=== PATIENT | male | born 1930 | race Caucasian/White ===

== ENCOUNTER 2016-03-25 14:29 | Observation (INO) | payer OTHER ==
[~2016-03-25] VITALS: Ht 172.7 cm; Wt 93.1 kg
[~2016-03-25 14:29] MED LIST: ALLOPURINOL300 MG PO; ASPIR-LOW81 MG PO; COUMADIN5 MG PO; ECOTRIN325 MG PO; Ecotrin PO; LOPRESSOR25 MG PO; LOSARTAN POTASS50 MG PO; LOVENOX80 MG/0.8 SC; NITROSTAT0.4 MG SL; PLAVIX75 MG PO; PRAVASTATIN SOD40 MG PO; PRILOSEC20 MG PO; TOPROL XL50 MG PO; Toprol XL PO; Zantac PO
[2016-03-25 15:35] LABS: ADD MIUA? YES; BILIRUBIN NEGATIVE; BLOOD SMALL; COLOR YELLOW ((YELLOW)); GLUCOSE (STRIP) NEGATIVE; KETONES NEGATIVE; LEUKOCYTES LARGE; NITRITE POSITIVE; PROTEIN (STRIP) 30; SPECIFIC GRAVITY 1.013 (1.000-1.030); UROBILINOGEN 0.2 MG/DL (0.2-1.0)
[2016-03-25 16:04] LABS: EPITHELIAL CELLS NONE SEEN; MUCUS NONE SEEN; RED BLOOD CELLS RARE /HPF (0-5); WHITE BLOOD CELLS 20-30 /HPF (0-5)
[2016-03-25 16:05] LABS: BACTERIA 1+; CASTS NONE SEEN /LPF; CRYSTALS NONE SEEN; UCUL ADDED? NO
[2016-03-25 16:25] LABS: HEMATOCRIT 37.9 % (38.0-50.0); MCH 30.2 PG (29.0-34.0); MCHC 34.3 G/DL (30.0-36.0); MCV 87.9 FL (86-99); MEAN PLAT.VOLUME 10.6 uM^3 (9.0-12.4); PLATELET COUNT 248 K/uL (156-360); RBC DIS.WIDTH-CV 13.7 % (11.8-14.6); RED BLOOD COUNT 4.31 M/uL (4.00-5.50); WHITE BLOOD COUNT 18.2 K/uL (4.1-10.2)
[2016-03-25 16:35] LABS: CHLORIDE 95 mEq/L (99-109); POTASSIUM 4.5 mEq/L (3.7-5.4); SODIUM 124 mEq/L (136-147)
[2016-03-25 16:37] LABS: GLUCOSE 148 mg/dL (70-99)
[2016-03-25 16:38] LABS: ANION GAP 10 MEQ/L (2-14)
[2016-03-25 16:41] LABS: GFR ESTIMATE (CALCULATED) 32 mL/min/
[2016-03-25 16:42] LABS: UREA NITROGEN (BUN) 26 mg/dL (9-23)
[2016-03-25] MEDS ORDERED: WARFARIN SODIUM3 MG PO (18:06)
[2016-03-25] MEDS ORDERED: PROTONIX40 MG PO (18:07)
[2016-03-25] MEDS ORDERED: ALLOPURINOL300 MG PO (18:07)
[2016-03-25 18:19] LABS: PTT 75.8 (25-32)
[2016-03-25 18:25] LABS: INTER. NORMALIZED RATIO 4.2; PROTHROMBIN TIME 44.6 (9.2-11.2)
[2016-03-25 19:04] VITALS: BP 193/100
[2016-03-25 19:40] VITALS: BP 133/80
[2016-03-25 23:45] VITALS: BP 153/82
[2016-03-26 03:24] VITALS: BP 158/80
[2016-03-26 07:31] LABS: EOSINOPHIL (%) 0.7 % (0-5); EOSINOPHIL COUNT 0.1 K/uL (0-0.3); HEMATOCRIT 37.1 % (38.0-50.0); IMMATURE GRANULOCYTE (%) 0.4 % (0.0-0.7); IMMATURE GRANULOCYTE COUNT 0.1 K/uL; INTER. NORMALIZED RATIO 3.9; LYMPHOCYTE COUNT 1.1 K/uL (1.0-2.8); MCH 30.5 PG (29.0-34.0); MCHC 34.2 G/DL (30.0-36.0); MCV 89.2 FL (86-99); MEAN PLAT.VOLUME 11.2 uM^3 (9.0-12.4); MONOCYTE COUNT 1.1 K/uL (0-0.8); NEUTROPHIL (%) 80.8 % (45-76); PLATELET COUNT 265 K/uL (156-360); PROTHROMBIN TIME 41.9 (9.2-11.2); RBC DIS.WIDTH-SD 45.8 % (39-53); RED BLOOD COUNT 4.16 M/uL (4.00-5.50)
[2016-03-26 07:32] LABS: WHITE BLOOD COUNT 12.4 K/uL (4.1-10.2)
[2016-03-26 08:03] LABS: ANION GAP 9 MEQ/L (2-14); CHLORIDE 100 MEQ/L (99-109); GFR ESTIMATE (CALCULATED) 34 mL/min/; POTASSIUM 5.1 MEQ/L (3.7-5.4); SAMPLE HEMOLYSIS CHECK 0; SAMPLE ICTERIC CHECK 0; SAMPLE LIPEMIA CHECK 0; UREA NITROGEN (BUN) 23 mg/dL (9-23)
[2016-03-26 08:04] VITALS: BP 179/91
[2016-03-26 08:04] LABS: GLUCOSE 88 mg/dL (70-99); SODIUM 133 MEQ/L (136-147)
[2016-03-26] MEDS ORDERED: TAMSULOSIN HCL0.4 MG PO (11:38)
[2016-03-26] MEDS ORDERED: CIPRO500 MG PO (11:42)
[2016-03-26 11:59] VITALS: BP 161/88
== END 2016-03-26 13:50 | disposition home or self-care (01) ==
LOC: EME 14:29 → EDOF 17:21 → 5WEST 17:21 → EDOF 17:21 → 5WEST 18:13
PROVIDERS: Emergency Medicine; Internal Medicine
DX: N39.0 Urinary tract infection, site not specified (principal); B96.20 Unspecified Escherichia coli [E. coli] as the cause of diseases classified elsewhere; E87.1 Hypo-osmolality and hyponatremia; R79.1 Abnormal coagulation profile; I12.9 Hypertensive chronic kidney disease with stage 1 through stage 4 chronic kidney disease, or unspecified chronic kidney disease; N18.3 Chronic kidney disease, stage 3 (moderate); I25.10 Atherosclerotic heart disease of native coronary artery without angina pectoris; I25.2 Old myocardial infarction; Z98.61 Coronary angioplasty status; R73.09 Other abnormal glucose; E78.5 Hyperlipidemia, unspecified; R97.20 Elevated prostate specific antigen [PSA]; K59.00 Constipation, unspecified; Z86.718 Personal history of other venous thrombosis and embolism; Z79.01 Long term (current) use of anticoagulants; Z79.02 Long term (current) use of antithrombotics/antiplatelets; Z86.19 Personal history of other infectious and parasitic diseases
CPT/HCPCS: 74176; 80048; 81003; 83930; 83935; 84300; 85025; 85027; 85610; 85730; 87077; 87086; 87186; 99281; 99285; G0103; G0378; G8987 GO CH; G8988 GO CH; G8989 GO CH; J0696; J7030; J7050

== ENCOUNTER 2017-01-01 03:11 | Emergency (ER) | payer OTHER ==
[~2017-01-01] VITALS: Ht 172.7 cm; Wt 88.4 kg
[~2017-01-01 03:11] MED LIST changes: +CIPRO500 MG PO; +PROTONIX40 MG PO; +TAMSULOSIN HCL0.4 MG PO; +WARFARIN SODIUM3 MG PO
[2017-01-01 04:37] LABS: BASOPHIL COUNT 0.1 K/uL (0-0.1); EOSINOPHIL (%) 2.5 % (0-5); EOSINOPHIL COUNT 0.2 K/uL (0-0.3); HEMATOCRIT 43.4 % (38.0-50.0); IMMATURE GRANULOCYTE (%) 0.6 % (0.0-0.7); IMMATURE GRANULOCYTE COUNT 0.1 K/uL; INSTRUMENT ABS NEUTROPHIL CT 5.7 K/uL; LYMPHOCYTE COUNT 1.9 K/uL (1.0-2.8); MCH 30.8 PG (29.0-34.0); MCHC 33.2 G/DL (30.0-36.0); MCV 92.7 FL (86-99); MEAN PLAT.VOLUME 10.3 uM^3 (9.0-12.4); MONOCYTE (%) 9.8 % (3-12); MONOCYTE COUNT 0.9 K/uL (0-0.8); NEUTROPHIL (%) 65.3 % (45-76); NEUTROPHIL COUNT 5.7 K/uL (1.8-6.4); PLATELET COUNT 237 K/uL (156-360); RBC DIS.WIDTH-CV 14.7 % (11.8-14.6); RED BLOOD COUNT 4.68 M/uL (4.00-5.50); WHITE BLOOD COUNT 8.8 K/uL (4.1-10.2)
[2017-01-01 04:49] LABS: CHLORIDE 101 mEq/L (99-109); POTASSIUM 4.3 mEq/L (3.7-5.4)
[2017-01-01 04:50] LABS: SODIUM 133 mEq/L (136-147)
[2017-01-01 04:51] LABS: GLUCOSE 109 mg/dL (70-99)
[2017-01-01 04:53] LABS: ANION GAP 11 MEQ/L (2-14)
[2017-01-01 04:55] LABS: GFR ESTIMATE (CALCULATED) 38 mL/min/
[2017-01-01 04:56] LABS: UREA NITROGEN (BUN) 22 mg/dL (9-23)
[2017-01-01] MEDS ORDERED: AUGMENTIN875 MG PO (05:06)
[2017-01-01 05:37] LABS: INTER. NORMALIZED RATIO 2.6; PROTHROMBIN TIME 30.1 SEC (10.2-12.9)
[2017-01-01 05:39] LABS: PTT 37.1 SEC (25-37)
[2017-01-01 05:53] VITALS: BP 155/70
== END 2017-01-01 05:55 | disposition home or self-care (01) ==
LOC: EME 03:11
PROVIDERS: Emergency Medicine
PROC: 2Y41X5Z Packing of Nasal Region using Packing Material (ICD-10-PCS; principal; 2017-01-01)
DX: R04.0 Epistaxis (principal); I10 Essential (primary) hypertension; E78.5 Hyperlipidemia, unspecified; I25.10 Atherosclerotic heart disease of native coronary artery without angina pectoris; Z79.01 Long term (current) use of anticoagulants; K21.9 Gastro-esophageal reflux disease without esophagitis; I25.2 Old myocardial infarction; Z87.440 Personal history of urinary (tract) infections; Z87.442 Personal history of urinary calculi
CPT/HCPCS: 80048; 85025; 85610; 85730; 99281; 99283